=== PATIENT | female | born 1975 | race Caucasian/White ===

== ENCOUNTER → 2017-04-13 | Outpatient (CLI) | payer OTHER ==
--- NOTE | 2017-04-17 09:10 | CODING QUERY NO DIAGNOSIS ---
TREATMENT RENDERED WITHOUT A DIAGNOSIS 77 To promote full compliance with coding requirements relating to patient care, physician participation is requested in all cases of carrier blower uncertainty. Please assist us with providing a diagnosis/symptom for the test(s) below: A diagnosis/symptom was not documented on your Order. A valid diagnosis/symptom is required to bill all insurances. Please remember that we are unable to code a diagnosis of rule out, probable, possible, questionable, or suspected. DOS 04/13/17 Tests that require a diagnosis: * URINE CULTURE DIAGNOSIS: * URINE CLEAN CATCH DIAGNOSIS: Provider Signature: Date: Thank you Azeb Hernandez Health Information Management Once completed, please kindly fax back to [phone] For questions please call [phone]
== END | disposition home or self-care (01) ==
LOC: C.LAB 10:45
PROVIDERS: ATTEND Physician Assistant
DX: R39.9 Unspecified symptoms and signs involving the genitourinary system (principal)

== ENCOUNTER 2023-07-31 16:52 | Inpatient (IN) ==
[2023-07-31] MEDS: SODIUM CHLORIDE 0.9% 1,000 ML IV ONE (17:14)
[2023-07-31] MEDS: KETOROLAC TROMETHAMINE 15 MG/ML VIAL IV ONE (17:14)
[2023-07-31 17:59] LABS: Basophils # (auto) 0.08 K/uL (0.00-0.20); Basophils % (auto) 0.8 %; Eosinophils # (auto) 0.19 K/uL (0.00-0.50); Hematocrit (blood only) 38.5 % (37.0-47.0); Hemoglobin 12.9 g/dl (12.0-16.0); Immature Granulocytes # (auto) 0.03 K/uL (0.01-0.20); Immature Granulocytes % (auto) 0.3 %; Lymphocytes % (auto) 21.9 %; Mean Corpuscular Hemoglobin 29.5 pg (25.0-34.0); Mean Corpuscular Hgb Conc 33.5 g/dL (32.0-36.0); Mean Corpuscular Volume 87.9 fL (80.0-100.0); Mean Platelet Volume 11.6 fL (9.4-12.4); Monocytes % (auto) 8.3 %; Neutrophils % (auto) 66.7 %; Platelet Count 260 K/uL (130-400); RDW Coefficient of Variation 11.9 % (11.5-14.5); RDW Standard Deviation 38.5 fL (36.4-46.3); Red Blood Count 4.38 M/uL (4.20-5.40)
[2023-07-31 18:21] LABS: Albumin Globulin Ratio 1.4 (0.9-2); Albumin Level 4.1 gm/dl (3.4-5.0); BUN Creatinine Ratio 12.9 (10-20); Bilirubin,Total 0.4 mg/dl (0.2-1.0); Calcium 8.9 mg/dl (8.6-10.3); Creatinine Clr Calc Pharmacy 79.1 ml/min; Est GFR (African American) 65.9 ml/min; Est GFR (Non-African American) 56.8 ml/min; Potassium 3.5 mmol/L (3.5-5.1); Total Protein 7.1 gm/dl (6.0-8.3)
[2023-07-31] MEDS: OPTIRAY 320 100ml IV ONE (18:53)
--- NOTE | 2023-07-31 19:35 | Emergency Department Note ---
ED Provider Note History of Present Illness Chief Complaint: Wound Stated Complaint: WOUND Time Seen by Provider: 07/31/23 16:56 47-year-old female who presents the emergency department with complaint of progressively worsening infection of her right upper thigh. The patient reports that her symptoms developed approximately 1 week ago. She was seen in the emergency department 4 days ago with an extensive workup, including labs and CT imaging without abscess formation. She has been taking Keflex and Bactrim DS antibiotics since that time without relief. The patient now reports that the pain is starting to extend onto the mons region, and sensation as if it is radiating along the inner aspect of her hip to her buttock. She also reports progressively worsening redness and firmness of the upper thigh. Patient denies any vaginal pain or discomfort with bowel movements. Patient also denies any change in urinary pattern. The patient reports that it even hurts when she she sits, and has to sit with her right hip turned outward. The patient rates her discomfort a 10 out of 10. Home Medications Medication Instructions Recorded Confirmed Type bupropion HCl 150 mg 24 hr tablet, 150 mg PO DAILY #90 tabs 07/06/23 07/31/23 Rx extended release lorazepam 0.5 mg tablet 0.5 mg PO DAILY PRN anxiety #30 07/06/23 07/31/23 Rx tabs cephalexin 500 mg capsule 500 mg PO BID 10 days #20 caps 07/27/23 07/31/23 Rx sulfamethoxazole 800 1 tab PO BID 10 days #20 tabs 07/27/23 07/31/23 Rx mg-trimethoprim 160 mg tablet (Bactrim DS) cranberry fruit concentrate 250 mg 250 mg PO BID 07/31/23 07/31/23 History chewable tablet (Azo Cranberry) sertraline 50 mg tablet 50 mg PO DAILY 07/31/23 07/31/23 History Allergies Allergy/AdvReac Type Severity Reaction Status Date / Time bee venom protein (honey bee) Allergy Unknown . Verified 07/31/23 20:17 No Known Drug Allergies Allergy Verified 07/06/23 08:21 Past Med/Surg History Problem List (Updated 07/31/23 @ 21:05 by Don Ortiz) Abscess of right groin (Acute) Cellulitis of groin, right (Acute) Bilateral arm pain Bone spur of acromioclavicular joint Contact dermatitis Rash and nonspecific skin eruption Exposure to 2018 novel coronavirus son was positive for coronavirus 01/10/2020 Anxiety and depression Encounter for gynecological examination without abnormal finding Mitral valve prolapse syndrome (Acute) Anxiety with depression Medical History Encounter for other general counseling and advice on contraception Surgical History S/P cholecystectomy History of wisdom tooth extraction Family History Aunt Breast cancer paternal Grandmother (Maternal) Cervical cancer Ovarian cancer Denies family history of Prostate cancer Myocardial infarction Colorectal cancer Social History Smoking Status: Unknown if ever smoked Second Hand Exposure: No; Do You Dip or Chew Tobacco: No; Hx Alcohol Use: Yes Alcohol Intake Frequency: Monthly or Less Hx Substance Use: No Preferred Language: Welsh Communication Ability: Effective Visual Impairment: No Limitations Hearing Ability: Normal Acute Care Nursing Assistant Required: No Beliefs That Will Affect Care: None marital status: Current Living Situation: Family Current Living Situation Comment: Lives at home with kids. current occupational status: employed current occupation: [employer] Feels Safe at Home: Yes Childhood Exposure to Second-Hand Smoke: No Diet: regular Diet Comment: regular caffeine: Yes during the past year weight has: remained stable Dental Care, Regularly: Yes Physical Activity Frequency: Daily Seatbelt Use: always Sunscreen Use: Yes Physical Exam Vital Signs Vital Signs - 24 hr 07/31/23 16:56 07/31/23 20:53 07/31/23 20:54 Pulse Rate 109 H Pulse Rate [Finger] 90 Pulse Rhythm [Finger] Regular Pulse Strength [Finger] Normal Respiratory Rate 20 16 Respiratory Effort / Characteristics Non-Labored Spontaneous Non-Labored Respiratory Depth Normal Normal Blood Pressure 164/108 H Blood Pressure [Right Arm] 109/82 Blood Pressure Mean 126 Blood Pressure Mean [Right Arm] 91 Pulse Oximetry 100 97 97 Oxygen Delivery Method Room Air Room Air Room Air Sepsis Recent Fever Within 48 Hours Yes Sepsis New/Unexplained Change in Mental Status No Sepsis Action Taken by Nursing No Action Required CONSTITUTIONAL: Healthy and well nourished. Patient does not appear in any significant distress, or toxic appearance. GASTROINTESTINAL: Bowel sounds present in all quadrants. Abdomen is soft and nontender to palpation. MUSCULOSKELETAL: Patient has discomfort with logroll of the right hip. INTEGUMENTARY: With a female nurse parts salvager present, examination shows notable erythema and induration along the right anteromedial proximal thigh region, with induration extending through the inguinal crease and onto the right mons. The patient also has induration extending along the medial inguinal crease into the region adjacent to the labia majora. No erythema is noted through the medial inguinal crease. No rash or other significant dermatologic conditions noted. HEMATOLOGIC: No ecchymosis or petechiae. PSYCHIATRIC: Positive affect. NEUROLOGIC: Right lower extremity is sensory intact. Procedures Free Text Procedures A right groin I&D procedure was performed under local anesthesia after receiving verbal consent from the patient. Using lidocaine 1% without epinephrine, good local anesthesia was administered. The patient was also pretreated with IV fentanyl 100 mcg as she was complaining of notable discomfort. The area was painted with iodine and allowed to dry. Using a #11 scalpel, a 1 cm incision was made at the area of pointing. Over an extended period of time, I was able to express approximately 10 to 15 cc of purulent material. Needle drivers were used to try to open as many loculations as possible without getting into vital deeper structures. After light irrigation, 0.25 inch plain packing was placed within the wound, and covered with a bulky gauze dressing. The patient tolerated the procedure well. Course Course Patient history and physical exam were performed. Nurses notes were reviewed. IV access was established, and labs were drawn, reviewed and grossly normal other than a mildly elevated sed rate. The patient was administered IV normal saline and Toradol, refusing any stronger analgesics on initial exam. CT with IV contrast of the pelvis did not show any significant focal areas of fluid collection, with generalized cellulitic changes. CT and laboratory findings were discussed with the patient. I also discussed the case with Dr. De Oliveira, ED attending physician, who also saw the patient in the emergency department this past Thursday. He also spoke with the patient, performed the physical examination, and found an area of point drainage just above the inguinal crease. He recommended I&D procedure and wound cultures. Procedure was performed, as indicated in the previous Procedure section. It is noted that the patient did have notable expression of purulent material. Wound cultures were collected. I also discussed the case with our hospital pharmacist (Isabella) regarding possible antibiotic changes as the patient initially indicated that she could not be admitted because she had other issues at home. Fortunately Dr. De Oliveira was able to convince the patient to stay given worsening infection compared to his examination findings on Thursday. Orders were placed for IV vancomycin, cefepime and clindamycin. [facility]. Please see their dictation for further treatment and final disposition. Administered Medications Vancomycin HCl 2,000 mg/ (Sodium Chloride) 540 mls @ 200 mls/hr IV NOW ONE Stop: 07/31/23 22:40 Last Admin: 07/31/23 21:13 Dose: 200 mls/hr Documented By: TRISH Discontinued Medications Acetaminophen (Acetaminophen 500 Mg Tab) 1,000 mg PO NOW STA Stop: 07/31/23 20:55 Last Admin: 07/31/23 21:12 Dose: 1,000 mg Documented By: TRISH Fentanyl Citrate (Fentanyl Citrate Pf 100 Mcg/2 Ml Vial) 100 mcg IV NOW STA Stop: 07/31/23 20:02 Last Admin: 07/31/23 20:10 Dose: 100 mcg Documented By: TRISH Sodium Chloride (Nss) 1,000 mls @ 999 mls/hr IV .Q1H1M ONE Stop: 07/31/23 18:07 Last Infusion: 07/31/23 18:15 Dose: Infused Documented By: Admin: 07/31/23 17:14 Dose: 999 mls/hr Documented By: MAKSIM Cefepime HCl 1,000 mg/ Syringe 10 mls @ 5 mls/min IV NOW STA; Protocol Stop: 07/31/23 20:00 Last Admin: 07/31/23 20:40 Dose: 5 mls/min Documented By: TRISH Ioversol (Optiray 320 100ml) 93 ml IV ONCE ONE Stop: 07/31/23 18:54 Last Admin: 07/31/23 18:53 Dose: 93 ml Documented By: LOLA Ketorolac Tromethamine (Ketorolac Tromethamine 15 Mg/Ml Vial) 20 mg IV NOW ONE Stop: 07/31/23 17:08 Last Admin: 07/31/23 17:14 Dose: 20 mg Documented By: MAKSIM Lidocaine HCl (Lidocaine 1% Local 20 Ml Vial) 20 ml INFIL NOW ONE Stop: 07/31/23 20:04 Last Admin: 07/31/23 20:49 Dose: 20 ml Documented By: TRISH Ondansetron HCl (Ondansetron Inj 2 Mg/Ml 2 Ml Vial) 4 mg IV NOW STA Stop: 07/31/23 20:03 Last Admin: 07/31/23 20:10 Dose: 4 mg Documented By: TRISH Medical Decision Making Medical Records Attestation: I reviewed the patient's medical records. Home Medications was personally reviewed by me Laboratory Data Attestation: I reviewed the patient's lab results. 07/31/23 17:15 07/31/23 17:15 Lab Results 07/31/23 Range/Units 17:15 WBC 9.60 (4.8-10.8) K/ul RBC 4.38 (4.20-5.40) M/uL Hgb 12.9 (12.0-16.0) g/dl Hct 38.5 (37.0-47.0) % MCV 87.9 (80.0-100.0) fL MCH 29.5 (25.0-34.0) pg MCHC 33.5 (32.0-36.0) g/dL RDW Std Deviation 38.5 (36.4-46.3) fL RDW Coeff of Delfina 11.9 (11.5-14.5) % Plt Count 260 (130-400) K/uL MPV 11.6 (9.4-12.4) fL Immature Gran % (Auto) 0.3 % Neut % (Auto) 66.7 % Lymph % (Auto) 21.9 % [place] % (Auto) 8.3 % Eos % (Auto) 2.0 % Baso % (Auto) 0.8 % Neut # (Auto) 6.40 (1.40-6.50) K/uL Lymph # (Auto) 2.10 (1.20-3.40) K/uL [place] # (Auto) 0.80 H (0.11-0.59) K/uL Eos # (Auto) 0.19 (0.00-0.50) K/uL Baso # (Auto) 0.08 (0.00-0.20) K/uL Immature Gran # (Auto) 0.03 (0.01-0.20) K/uL ESR 21 H (0-20) mm/hr Sodium 138 (136-145) mmol/L Potassium 3.5 (3.5-5.1) mmol/L Chloride 104 (98-107) mmol/L Carbon Dioxide 26 (21-32) mmol/L Anion Gap 8 (3-11) BUN 15 (6-23) mg/dl Creatinine 1.16 (0.6-1.2) mg/dl Est Cr Clr Drug Dosing 79.1 ml/min Est GFR ( Amer) 65.9 ml/min Est GFR (Non-Af Amer) 56.8 ml/min BUN/Creatinine Ratio 12.9 (10-20) Glucose 99 (70-99(Fasting)) mg/dl Calcium 8.9 (8.6-10.3) mg/dl Total Bilirubin 0.4 (0.2-1.0) mg/dl AST 18 (13-39) U/L ALT 19 (7-52) U/L Alkaline Phosphatase 62 (34-104) U/L Total Protein 7.1 (6.0-8.3) gm/dl Albumin 4.1 (3.4-5.0) gm/dl Globulin 3.0 (2.5-4.0) gm/dl Albumin/Globulin Ratio 1.4 (0.9-2) Imaging Data Attestation: I personally reviewed and interpreted this imaging study as follows: My Impression: My interpretation of the CT with IV contrast of the pelvis does not show any significant fluid collections, but notable induration and fat stranding within the subcutaneous tissue. Radiologist report was also reviewed with concurrence. Radiologist's Impression: Pelvis CT 07/31/23 17:07 Exam(s): CT PELVIS With Contrast IV Amt: 93ml optiray 320 EXAM: CT Pelvis With Intravenous Contrast CLINICAL HISTORY: Reason for exam: R upper thigh/inguinal/mons pain/infxn. TECHNIQUE: Axial computed tomography images of the pelvis with intravenous contrast. CTDI is 26.46 mGy and DLP is 1158.87 mGy-cm. Automated exposure control was utilized for the study. A dose lowering technique was utilized adhering to the principles of ALARA. CONTRAST: Patient received 93ml optiray 320 of IV contrast COMPARISON: CT pelvis on 07/27/2023 FINDINGS: Bowel: Mild diverticulosis. No obstruction. No mucosal thickening. Appendix: Normal appendix. Intraperitoneal space: Unremarkable. No free air. No significant fluid collection. Bladder: Unremarkable. No mass. Reproductive: Unremarkable as visualized. Bones/joints: No acute fracture or dislocation. Soft tissues: Fat stranding in the subcutaneous tissues of the right inguinal region, lateral right tibia, and proximal anteromedial right thigh, slightly increased compared to prior exam. Findings may represent cellulitis. No discrete abscess identified. No soft tissue gas. Small fat-containing umbilical hernia. Vasculature: Phleboliths in the pelvis. No lower abdominal aortic aneurysm. Lymph nodes: Nonspecific mildly prominent right inguinal lymph nodes may be reactive. IMPRESSION: Fat stranding in the subcutaneous tissues of the right inguinal region, lateral right tibia, and proximal anteromedial right thigh, slightly increased compared to prior exam. Findings may represent cellulitis. No discrete abscess identified. No soft tissue gas. Electronically signed by: Lisa Beverly M.D. 07/31/23 19:36 PM MDM Narrative See ED Course section for further details of today's visit. The patient presents the emergency department with complaint of progressively worsening cellulitis of her right proximal thigh region, that is now extending onto the mons and intertriginous region through her medial thigh. The patient also reports sensation of tightness and discomfort within the hip region, and has to sit with her hip externally rotated. The patient denies any vaginal or rectal pain. CT imaging today does show a worsening cellulitis when compared to her CT scan from 4 days ago. No obvious fluid collections were appreciated. The patient did have a small area of pointing, with an I&D procedure producing approximately 10 to 15 cc of purulent discharge. Packing was placed within the wound. The case was discussed with Dr. De Oliveira, ED attending physician, who also reexamined the patient and recommended admission. Although the patient was initially against an admission, she did agree given the progressively worsening infection. [facility] and also agrees with admission. Please see their dictation for further treatment and final disposition. Impression Abscess of right groin, Cellulitis of groin, right Discharge Plan Visit Data Chief Complaint: Wound Stated Complaint: WOUND ED Provider: Wilmar De Oliveira ED Midlevel Provider: Don Ortiz Discharge Problem: Abscess of right groin, Cellulitis of groin, right Forms Stand Alone Forms: My [facility] Prescriptions Prescriptions: No Action bupropion HCl 150 mg tablet extended release 24 hr 150 mg PO DAILY Qty: 90 2RF lorazepam 0.5 mg tablet 0.5 mg PO DAILY PRN (Reason: anxiety) Qty: 30 0RF sertraline 50 mg tablet 50 mg PO DAILY Azo Cranberry 250 mg Tablet,Chewable 250 mg PO BID cephalexin 500 mg capsule 500 mg PO BID 10 Days Qty: 20 0RF Rx Instructions: Start Date 07/27/23 x10 day supply, Pt has taken 9 doses. sulfamethoxazole-trimethoprim [Bactrim DS] 800-160 mg tablet 1 tab PO BID 10 Days Qty: 20 0RF Rx Instructions: Start Date 07/27/23 x10 day supply, Pt has taken 9 doses. Referrals Referrals: Cristhian Dunn CRNP [Primary Care Provider] -
[2023-07-31] MEDS ORDERED: VANCOMYCIN CONSULT ACTIVE PRN (19:59)
[2023-07-31] MEDS: CLINDAMYCIN/D5W 900 MG/50 ML BAG IV ONE ×2 (19:59→21:53)
--- NOTE | 2023-07-31 20:02 | Emergency Department Note ---
ED Visit Note Physician Evaluation Note: Patient was seen in conjunction with the midlevel provider. Please see the midlevel provider note for full details of the patient's visit. I have personally evaluated and examined this patient. Patient presented to the ED with increased swelling and pain in the right groin. Patient was seen here in the emergency room by myself on 07/26, she was ultimately discharged home following CT imaging that did not show evidence of abscess, patient was placed on Keflex and Bactrim. Patient states she has not experienced much relief of any of her symptoms despite being on these medications. She continues to have swelling and pain in the area of her right groin. Clinically the patient does have worsening swelling and pain in the groin, there is now tenderness and firmness in the area of concern with mild purulent drainage centrally from what appears to be a small abscess. Lab work was obtained that is largely reassuring, no leukocytosis, patient does not have a fever. CT imaging of the pelvis shows worsening changes consistent with cellulitis without discrete fluid collection. On my examination the patien t does have a small abscess in the groin with some mild drainage with pressure, given this I did advise the PA to perform an incision and drainage. This was performed at the bedside by the PA (Don Ortiz PA-C), please see his procedure note for details. Purulent drainage was expelled from the wound. Patient states she felt some relief of the pressure following this. Given the extent of the findings on CT imaging and clinical worsening of the patient's symptoms, I do feel she would benefit from admission to initiate IV antibiotics (given failure of oral therapy) and to follow-up on blood cultures. Clinically she does not appear to have an acute necrotizing soft tissue infection at this time. Patient is in agreement to this plan. IV vancomycin, IV cefepime, and IV clindamycin were administered, patient was placed for admission in stable condition. I agree with assessment and plan of SERGO Sales DO .
[2023-07-31] MEDS: ONDANSETRON INJ 2 MG/ML 2 ML VIAL IV STA (20:10)
[2023-07-31] MEDS: fentaNYL citrate PF 100 MCG/2 ML VIAL IV STA (20:10)
[2023-07-31] MEDS: CEFEPIME 1,000 MG in SYRINGE 0 ML IV STA (20:40)
[2023-07-31] MEDS: LIDOCAINE 1% LOCAL 20 ML VIAL INFIL ONE (20:49)
[2023-07-31] MEDS ORDERED: NALOXONE HCL 0.4 MG/1 ML VIAL/CARP IV PRN (20:54)
--- NOTE | 2023-07-31 21:11 | History & Physical Report ---
Date of Service July 31, 2023 Assessment & Plan (1) Cellulitis of groin, right: Plan: -Admit to med/sure on pulse oximetry -Currently stable and non-toxic appearing -Patient was initially seen in the [facility] ED on 07/26 for right thigh cellulitis which started on 07/25 -CT of the right pelvis at that time was negative for abscess and she was discharged on Bactrim and Keflex -Cellulitis and pain progressed since -Repeat CT of the RLE today shows progression of the cellulitis, it was read as no fluid collection -The ED was able to drain approximately 10-15 cc of purulent material at bedside tonight -S/P cefepime and clindamycin prior to admission with a dose of Vancomycin ordered as well -We will continue with Cefepime and Vancomycin for now -Follow blood cultures and I&D culture -PRN tylenol and morphine for pain -Regular diet -AM CBC, CMP, mag, PT/INR (2) Abscess of right groin: Plan: -See cellulitis of the right groin Plan The patient was discussed with Dr. Hale at the time of the admission History of Present Illness Chief Complaint: Progressive cellulitis Primary Care Provider: FABIAN Roper Trang is a 47 year old female with a PMH significant for anxiety/depression and mitral valve prolapse who presented to the [facility] ED on 07/31/23 with concerns for progression of her recently diagnosed right groin cellulitis. She was initially diagnosed with cellulitis of the right upper thigh on 07/26 and prescribed Keflex and Bactrim. She has been taking both as prescribed but reports that the cellulitis continues to spread to the anterior thigh and the buttocks. Her pain is so severe that she is unable to put pressure on her right buttocks. She remained stable in the ED. Labs were significant for an ESR of 21. CT of the abd/pelvis W/IV con was read as Fat stranding in the subcutaneous tissues of the right inguinal region, lateral right tibia, and proximal anteromedial right thigh, slightly increased compared to prior exam. Findings may represent cellulitis. No discrete abscess identified. No soft tissue gas. Prior to admission the patient was given 100 mcg IV fentanyl, 4 mg IV Zofran, 20 mg IV toradol, and 1L NSS. She was ordered doses of cefepime, clindamycin, and vancomycin as well. At the time of the exam the patient was lying in bed in no acute distress. She confirms the above history. States that the cellulitis initially started in the right upper thigh. Since 07/26 the cellulitis moved into the right upper mid thigh, right upper anterior thigh, and the right lateral buttocks. She worked a full shift today, she was in severe pain by the end of the shift. States she has had fevers up to 101F despite alternating Tylenol and Ibuprofen at home. Denies recent chest pain, SOB, cough, abd pain, nausea, vomiting, diarrhea, dysuria, hematuria, melena, and recent trauma. She is a full code. The ED staff noted what appeared to be an infected hair follicle near an area of induration in the right upper thigh. They performed a bedside I&D and were able to drain approximately 10 to 15 cc of purulent material which will be sent for culture. Please refer to Dr. Hale's attestation for any changes to the treatment plan Allergies Allergy/AdvReac Type Severity Reaction Status Date / Time bee venom protein (honey bee) Allergy Severe Anaphylaxis Verified 08/01/23 08:01 No Known Drug Allergies Allergy Anaphylaxis Verified 08/01/23 08:01 Home Medications Medication Instructions Recorded Confirmed Type bupropion HCl 150 mg 24 hr tablet, 150 mg PO DAILY #90 tabs 07/06/23 07/31/23 Rx extended release lorazepam 0.5 mg tablet 0.5 mg PO DAILY PRN anxiety #30 07/06/23 07/31/23 Rx tabs cephalexin 500 mg capsule 500 mg PO BID 10 days #20 caps 07/27/23 07/31/23 Rx sulfamethoxazole 800 1 tab PO BID 10 days #20 tabs 07/27/23 07/31/23 Rx mg-trimethoprim 160 mg tablet (Bactrim DS) cranberry fruit concentrate 250 mg 250 mg PO BID 07/31/23 07/31/23 History chewable tablet (Azo Cranberry) sertraline 50 mg tablet 50 mg PO DAILY 07/31/23 07/31/23 History Past Med/Surg History Problem List (Updated 07/31/23 @ 21:05 by Don Ortiz) Abscess of right groin (Acute) Cellulitis of groin, right (Acute) Bilateral arm pain Bone spur of acromioclavicular joint Contact dermatitis Rash and nonspecific skin eruption Exposure to 2019 novel coronavirus son was positive for coronavirus 01/10/2020 Anxiety and depression Encounter for gynecological examination without abnormal finding Mitral valve prolapse syndrome (Acute) Anxiety with depression Medical History Encounter for other general counseling and advice on contraception Surgical History S/P cholecystectomy History of wisdom tooth extraction Family History Aunt Breast cancer paternal Grandmother (Maternal) Cervical cancer Ovarian cancer Denies family history of Prostate cancer Myocardial infarction Colorectal cancer Social History Smoking Status: Never smoker Second Hand Exposure: No; Do You Dip or Chew Tobacco: No; Hx Alcohol Use: Yes Alcohol Intake Frequency: Monthly or Less Hx Substance Use: No Preferred Language: Khmer Communication Ability: Effective Visual Impairment: No Limitations Hearing Ability: Normal Medical Record Specialist Required: No Beliefs That Will Affect Care: None marital status: Current Living Situation: Family Current Living Situation Comment: Lives at home with kids. current occupational status: employed current occupation: [employer] Feels Safe at Home: Yes Safety Concerns: Feels Safe At This Time Childhood Exposure to Second-Hand Smoke: No Diet: regular Diet Comment: regular caffeine: Yes during the past year weight has: remained stable Dental Care, Regularly: Yes Physical Activity Frequency: Daily Seatbelt Use: always Sunscreen Use: Yes Assistive Devices: None Physical Exam Physical Exam: Physical Exam: General: In no acute distress, stated age, well-nourished, non-toxic appearing HEENT: Normocephalic, atraumatic, no scleral icterus, pupils around round, symmetrical, and reactive to light, moist mucus membranes, trachea midline, no thyromegaly Chest/Pulm: No respiratory distress, symmetrical chest expansion, clear breath sounds throughout Cardiac: tachycardic rate, regular rhythm, no murmurs noted Abdomen: Negative for ascites and bruising, normoactive bowel sounds, soft, non-tender to palpation throughout Musculoskeletal: Symmetrical and without signs of acute trauma, upper and lower extremities with full ROM, no atrophy, spasticity, or flaccidity Extremities: Radial, dorsalis pedis, and posterior tibial pulses are intact and symmetrical, no edema noted in the BL LE's Skin: Patient is S/P right upper groin I&D currently bandaged and without active bleeding, erythema and swelling of the right upper thigh/groin with some erythema on the right lateral thigh, area is warm and tender to palpation Neuro: Alert and oriented to person, place, month, year, and president, no focal defects, no tremors noted Psych: No acute distress, calm, pleasant, and cooperative during the exam Results & Data Results & Data Vital Signs (Past 12 Hours) Vital Signs Pulse Resp BP Pulse Ox O2 Del Method 07/31/23 16:56 109 H 20 164/108 H 100 Room Air Laboratory Results Abnormal lab results 07/31/23 Range/Units 17:15 [place] # (Auto) 0.80 H (0.11-0.59) K/uL ESR 21 H (0-20) mm/hr Diagnostic Findings Pelvis CT 07/31/23 17:07 Exam(s): CT PELVIS With Contrast IV Amt: 93ml optiray 320 EXAM: CT Pelvis With Intravenous Contrast CLINICAL HISTORY: Reason for exam: R upper thigh/inguinal/mons pain/infxn. TECHNIQUE: Axial computed tomography images of the pelvis with intravenous contrast. CTDI is 26.46 mGy and DLP is 1158.87 mGy-cm. Automated exposure control was utilized for the study. A dose lowering technique was utilized adhering to the principles of ALARA. CONTRAST: Patient received 93ml optiray 320 of IV contrast COMPARISON: CT pelvis on 07/27/2023 FINDINGS: Bowel: Mild diverticulosis. No obstruction. No mucosal thickening. Appendix: Normal appendix. Intraperitoneal space: Unremarkable. No free air. No significant fluid collection. Bladder: Unremarkable. No mass. Reproductive: Unremarkable as visualized. Bones/joints: No acute fracture or dislocation. Soft tissues: Fat stranding in the subcutaneous tissues of the right inguinal region, lateral right tibia, and proximal anteromedial right thigh, slightly increased compared to prior exam. Findings may represent cellulitis. No discrete abscess identified. No soft tissue gas. Small fat-containing umbilical hernia. Vasculature: Phleboliths in the pelvis. No lower abdominal aortic aneurysm. Lymph nodes: Nonspecific mildly prominent right inguinal lymph nodes may be reactive. IMPRESSION: Fat stranding in the subcutaneous tissues of the right inguinal region, lateral right tibia, and proximal anteromedial right thigh, slightly increased compared to prior exam. Findings may represent cellulitis. No discrete abscess identified. No soft tissue gas. Electronically signed by: Lisa Beverly M.D. 07/31/23 19:36 PM Code Status & VTE Plan Code Status Full code VTE Prophylaxis Plan VTE Prophylaxis will be ordered: Yes Supervising Physician Co-Signing Physician Notes Attending addendum: I have physically seen this patient, have supervised the MYRA's activities, and agree with the H&P unless as otherwise noted. Assessment and Plan: Right groin cellulitis- CT abdomen pelvis stable Vancomycin IV, clindamycin IV and cefepime IV ordered from the ED Continue vancomycin IV and cefepime IV Follow wound culture and sensitivity, blood culture and sensitivity PG Care Time/CCT Total # of Minutes Spent Total Time Spent with Patient: Total time spent is greater than 50% in coordination of care (as documented) at patient's floor/unit and/or counseling patient: C[place] [address] INT INP/OBS CARE 2/55MIN Patient Type Established Medical Decision Making Moderate Complexity Diagnoses Cellulitis of groin, right L03.314 Abscess of right groin L02.214
[2023-07-31] MEDS: ACETAMINOPHEN 500 MG TAB PO STA (21:12)
[2023-07-31] MEDS: VANCOMYCIN HCL 2,000 MG in SODIUM CHLORIDE 0.9% 500 ML IV ONE (21:13)
[2023-07-31] MEDS: MoRPHine SULFATE 2 MG/ML CARP IV STA (21:53)
[2023-07-31] MEDS ORDERED: MoRPHine SULFATE 2 MG/ML CARP IV PRN (23:00)
[2023-07-31] MEDS: LORazepam 0.5 MG TAB PO PRN (23:28)
[2023-07-31] MEDS: ENOXAPARIN INJ 40 MG/0.4 ML SYR SQ SCH (23:28)
[2023-08-01] MEDS: IBUPROFEN 600 MG TAB PO STA (01:09)
[2023-08-01] MEDS: CEFEPIME 2,000 MG in SYRINGE 0 ML IV SCH (01:10)
[2023-08-01] MEDS: ACETAMINOPHEN 325 MG TAB PO SCH (01:11)
[2023-08-01 07:15] LABS: Basophils # (auto) 0.08 K/uL (0.00-0.20); Basophils % (auto) 1.2 %; Eosinophils # (auto) 0.28 K/uL (0.00-0.50); Eosinophils % (auto) 4.1 %; Hematocrit (blood only) 36.5 % (37.0-47.0); Hemoglobin 12.1 g/dl (12.0-16.0); Immature Granulocytes # (auto) 0.01 K/uL (0.01-0.20); Immature Granulocytes % (auto) 0.1 %; Lymphocytes # (auto) 1.65 K/uL (1.20-3.40); Lymphocytes % (auto) 24.3 %; Mean Corpuscular Hemoglobin 29.3 pg (25.0-34.0); Mean Corpuscular Hgb Conc 33.2 g/dL (32.0-36.0); Mean Corpuscular Volume 88.4 fL (80.0-100.0); Mean Platelet Volume 11.7 fL (9.4-12.4); Monocytes # (auto) 0.72 K/uL (0.11-0.59); Monocytes % (auto) 10.6 %; Neutrophils # (auto) 4.06 K/uL (1.40-6.50); Neutrophils % (auto) 59.7 %; Platelet Count 208 K/uL (130-400); RDW Coefficient of Variation 11.9 % (11.5-14.5); RDW Standard Deviation 38.6 fL (36.4-46.3); Red Blood Count 4.13 M/uL (4.20-5.40)
[2023-08-01 07:28] LABS: Albumin Globulin Ratio 1.4 (0.9-2); Albumin Level 3.4 gm/dl (3.4-5.0); BUN Creatinine Ratio 14.8 (10-20); Bilirubin,Total 0.4 mg/dl (0.2-1.0); Calcium 7.9 mg/dl (8.6-10.3); Creatinine Clr Calc Pharmacy 113.2 ml/min; Est GFR (African American) 101.7 ml/min; Est GFR (Non-African American) 87.7 ml/min; Globulin 2.5 gm/dl (2.5-4.0); Potassium 3.8 mmol/L (3.5-5.1); Total Protein 5.9 gm/dl (6.0-8.3)
[2023-08-01] MEDS ORDERED: HYDROCODONE/ACETAMINOPHEN 7.5/325MG TAB PO PRN (07:46)
[2023-08-01] MEDS ORDERED: MoRPHine SULFATE 2 MG/ML CARP IV PRN (07:48)
[2023-08-01] MEDS: SERTRALINE HCL 50 MG TABLET PO SCH (08:07)
[2023-08-01] MEDS: buPROPion XL 150 MG TABCR PO SCH (08:08)
[2023-08-01] MEDS: VANCOMYCIN HCL 1,000 MG in SODIUM CHLORIDE 0.9% 250 ML IV SCH (08:08)
[2023-08-01] MEDS: KETOROLAC 30 MG/ML VIAL IV PRN (08:08)
--- NOTE | 2023-08-01 08:51 | Pharmacy Report ---
Pharmacy PK ABX Note - Date of Service August 01, 2023 - Assessment and Plan Assessment 47 year old F receiving IV Vancomycin + Cefepime for treatment of right groin cellulitis. -Patient was initially seen in the [facility] ED on 07/26 for right thigh cellulitis which started on 07/25 -CT of the right pelvis at that time was negative for abscess and she was discharged on Bactrim and Keflex -Cellulitis and pain progressed since -Repeat CT of the RLE 07/31 shows progression of the cellulitis, it was read as no fluid collection -The ED was able to drain approximately 10-15 cc of purulent material at bedside tonight Blood and groin cultures pending, afebrile, WBC 6.8. Day # 2 of antimicrobial therapy as inpatient. Plan Vancomycin * Loading dose: 2000 mg IV x 1 * Maintenance dose: 1000 mg IV every 12 hours * Regimen is predicted to achieve target AUC/BEAR of 400-600 mg/L.hr * Trough level ordered for: 08/02/23 Cefepime 2000mg IV Q8H Pharmacy will continue to follow and will adjust dose/frequency as necessary. Thank you. Pharmacy has transitioned to AUC monitoring for vancomycin. AUC/BEAR is the preferred PK/PD target and is associated with decreased risk of nephrotoxicity compared to traditional trough targets.
--- NOTE | 2023-08-01 14:09 | Hospitalist Progress Note ---
Date of Service August 01, 2023 Assessment & Plan (1) Cellulitis of groin, right: Plan: 47-year-old woman with right groin cellulitis and abscess due to Staph aureus, failed to respond to oral Keflex and Bactrim -Initially seen in the [facility] ED on 07/26 for right thigh cellulitis which started on 07/25 -CT of the right pelvis at that time was negative for abscess and she was discharged on Bactrim and Keflex -Cellulitis and pain progressed significantly -CT of the RLE 07/30 shows progression of the cellulitis, it was read as no fluid collection -The ED was able to drain approximately 10-15 cc of purulent material from abscess right groin - culture of this growing Staph aureus, since he pending plan: Narrow antibiotics to vancomycin and cefazolin pending sensitivities - for pain control added as needed Toradol, tramadol, [place]. Continue acetaminophen - will benefit from continued IV antibiotics for severe SSTI, home in 1-2 days reviewed CBC 07/31 unremarkable no leukocytosis, BMP with preserved normal renal function and normal electrolytes follow-up blood cultures which are pending (2) Abscess of right groin: Plan: continue wound care, see above Plan low risk for DVT, is ambulatory, continue SCDs Admission and Anticipated Discharge Date Admission Date: July 31, 2023 Subjective R groin remains painful 07/23, dose of toradol today did help Indurated area improved - was size of her hand, now maybe half that Erythema of skin of thigh, buttock resolved Physical Exam 2 Physical Exam: PHYSICAL EXAMINATION Last 24h vital signs reviewed, see documentation in flowsheet General: healthy appearing, no distress HEENT: Normocephalic, atraumatic, pupils round and equal, sclerae anicteric, no conjunctival injection, moist mucus membranes Lungs: Normal respiratory effort. Heart: Abdomen: nondistended. Extremities: Warm, dry, well-perfused. No extremity edema. right groin with small incision and wick at site of IND, indurated area approximately 1520-20 x 5 centimeters, darkening erythema overlying that area, adenopathy present, cellulitis of thigh and buttock resolved Neuro: Alert and oriented x 4, face symmetric, moves 4 extremities well Psych: Normal affect and behavior Results & Data Results & Data Vital Signs (Past 12 Hours) Vital Signs Temp Pulse Resp BP Pulse Ox O2 Del Method 08/01/23 07:41 Room Air 08/01/23 07:21 36.7 C 78 18 106/70 98 Room Air Laboratory Results 08/01/23 05:53 08/01/23 05:53 PG Care Time/CCT Total # of Minutes Spent Total Time Spent with Patient: Total time spent is greater than 50% in coordination of care (as documented) at patient's floor/unit and/or counseling patient: Coding Level of Care Code 01421 SUB INP/OBS CARE 2/35MIN Diagnoses Cellulitis of groin, right L03.314 Abscess of right groin L02.214
[2023-08-01] MEDS: ceFAZolin 2000MG 2,000 MG/15 ML SYR IV SCH (15:38)
[2023-08-01] MEDS: ONDANSETRON INJ 2 MG/ML 2 ML VIAL IV PRN (16:17)
[2023-08-01] MEDS: traMADol HCL 50 MG TABLET PO PRN (18:17)
[2023-08-01] MEDS: VANCOMYCIN HCL 1,250 MG in SODIUM CHLORIDE 0.9% 250 ML IV SCH (18:18)
[2023-08-02 06:05] LABS: Creatinine Clr Calc Pharmacy 122.3 ml/min; Est GFR (African American) 111.6 ml/min; Est GFR (Non-African American) 96.3 ml/min
[2023-08-02] MEDS: VANCOMYCIN LEVEL ONE (06:14)
--- NOTE | 2023-08-02 08:43 | Pharmacy Report ---
Pharmacy PK ABX Note - Date of Service August 02, 2023 - Assessment and Plan Microbiology 07/31/23 20:40 Groin Gram Stain - Final 07/31/23 20:40 Groin Aerobic and Anaerobic Culture - Preliminary Staph aureus MRSA 07/31/23 20:25 Blood Aerobic Blood Culture - Preliminary 07/31/23 20:25 Blood Anaerobic Blood Culture - Preliminary No growth in Aerobic bottle after 24 hours. No growth in Anaerobic bottle after 24 hours. 07/31/23 20:15 Blood Aerobic Blood Culture - Preliminary 07/31/23 20:15 Blood Anaerobic Blood Culture - Preliminary No growth in Aerobic bottle after 24 hours. No growth in Anaerobic bottle after 24 hours. Assessment 08/01: Cefepime changed to cefazolin last night, groin growing MRSA, discontinue cefazolin and continue Vancomycin. *Note: patient got worse on 5 days of Bactrim at home - but MRSA culture is susceptible to Bactrim. ED did drain abscess 07/31. No growth in blood cultures x 24h. Day # 3 of antimicrobial therapy as inpatient. 07/31: 47 year old F receiving IV Vancomycin + Cefepime for treatment of right groin cellulitis. -Patient was initially seen in the [facility] ED on 07/26 for right thigh cellulitis which started on 07/25 -CT of the right pelvis at that time was negative for abscess and she was discharged on Bactrim and Keflex -Cellulitis and pain progressed since -Repeat CT of the RLE 07/31 shows progression of the cellulitis, it was read as no fluid collection -The ED was able to drain approximately 10-15 cc of purulent material at bedside tonight Blood and groin cultures pending, afebrile, WBC 6.8. Day # 2 of antimicrobial therapy as inpatient. Plan Vancomycin * Current regimen: 1250 mg IV every 12 hours * Trough level obtained 08/02/23 resulted as 8.1 mcg/mL. This is NOT predicted to achieve target AUC/BEAR of 400-600 mg/L.hr * Change to 1750 mg IV every 12 hours * Will repeat level in the next 48-72 hours if therapy is continued and/or change in patient clinical status * Anticipate discharge this evening Pharmacy will continue to follow and will adjust dose/frequency as necessary. Thank you. Pharmacy has transitioned to AUC monitoring for vancomycin. AUC/BEAR is the preferred PK/PD target and is associated with decreased risk of nephrotoxicity compared to traditional trough targets.
[2023-08-02] MEDS: VANCOMYCIN HCL 1,750 MG in SODIUM CHLORIDE 0.9% 500 ML IV SCH (14:45)
--- NOTE | 2023-08-02 14:56 | Hospitalist Progress Note ---
Date of Service August 02, 2023 Assessment & Plan (1) Cellulitis of groin, right: Plan: 47-year-old woman with right groin cellulitis and abscess due to MRSA, failed to respond to oral Keflex and Bactrim -Initially seen in the [facility] ED on 07/26 for right thigh cellulitis which started on 07/25 -CT of the right pelvis at that time was negative for abscess and she was discharged on Bactrim and Keflex -Cellulitis and pain progressed significantly - erythema of R thigh and buttock -CT of the RLE 07/30 showed progression of the cellulitis, it was read as no fluid collection -The ED was able to drain approximately 10-15 cc of purulent material from abscess right groin -culture is growing MRSA S to bactrim, doxy, clinda -blood cx NGTD plan: stop cefazolin and continue vancomycin - discussed with clinical pharmacist - indurated are has increased rather than decreased since yesterday - continue IV antibiotics, repeat imaging with ultrasound for persistent abscess if not continuing to improve - Cont Toradol, tramadol, [place]. Continue acetaminophen - will benefit from continued IV antibiotics for severe SSTI Cr remains normal today and vanco level low, dose increased follow-up blood cultures which are pending (2) Abscess of right groin: Plan: continue wound care, see above has tiny wick, leave in place since still draining and probably impossible to replace the wick Plan low risk for DVT, is ambulatory, continue SCDs Admission and Anticipated Discharge Date Admission Date: July 31, 2023 Subjective Had an episode of severe pain radiating from groin down anterior thigh yesterday afternoon, has not recurred Continues with purulent drainage from I&D site, indurated area has spread above the inguinal crease Pain controlled on toradol and tramadol Physical Exam Physical Exam: PHYSICAL EXAMINATION Last 24h vital signs reviewed, see documentation in flowsheet General: healthy appearing, no distress HEENT: Normocephalic, atraumatic, pupils round and equal, sclerae anicteric, no conjunctival injection, moist mucus membranes Lungs: Normal respiratory effort. Heart: Abdomen: nondistended. Extremities: Warm, dry, well-perfused. No extremity edema. right groin with small incision and wick at site of I&D with mild/mod purulent drainage on gauze, indurated area now present above inguinal crease, R groin adenopathy present, cellulitis of thigh and buttock resolved Neuro: Alert and oriented x 4, face symmetric, moves 4 extremities well Psych: Normal affect and behavior Results & Data Results & Data Vital Signs (Past 12 Hours) Vital Signs Temp Pulse Resp BP Pulse Ox O2 Del Method 08/02/23 07:04 36.7 C 71 16 116/76 98 Room Air Laboratory Results Cr 0.75, vancomycin 8.1 PG Care Time/CCT Total # of Minutes Spent Total Time Spent with Patient: Total time spent is greater than 50% in coordination of care (as documented) at patient's floor/unit and/or counseling patient: Coding Level of Care Code 66902 SUB INP/OBS CARE 235MIN Diagnoses Cellulitis of groin, right L03.314 Abscess of right groin L02.214
[2023-08-03 06:45] LABS: Creatinine Clr Calc Pharmacy 117.1 ml/min; Est GFR (African American) 106.4 ml/min; Est GFR (Non-African American) 91.8 ml/min
--- NOTE | 2023-08-03 10:27 | Ultrasound Report ---
US soft tissue groin CLINICAL HISTORY: US right groin, evaluate for abscess TECHNIQUE: Real-time grayscale sonographic images of the right groin were obtained. Comparison: Comparison is made to CT pelvis 07/31/2023 FINDINGS/IMPRESSION: In the tract formed by packing material, there is a tiny complex fluid collectio n measuring 3.7 x 0.4 x 1.8 cm compatible with a tiny abscess. Prominent regional lymph nodes are lik [place] reactive. ACT 112: Negative or not required by law. Electronically signed by: Gen Jerez M.D. 08/03/2023 10:26 AM
--- NOTE | 2023-08-03 19:05 | Discharge Summary ---
Date of Service August 03, 2023 Admission HPI Per Admitting Provider Trang is a 47 year old female with a PMH significant for anxiety/depression and mitral valve prolapse who presented to the [facility] ED on 07/31/23 with concerns for progression of her recently diagnosed right groin cellulitis. She was initially diagnosed with cellulitis of the right upper thigh on 07/26 and prescribed Keflex and Bactrim. She has been taking both as prescribed but reports that the cellulitis continues to spread to the anterior thigh and the buttocks. Her pain is so severe that she is unable to put pressure on her right buttocks. She remained stable in the ED. Labs were significant for an ESR of 21. CT of the abd/pelvis W/IV con was read as Fat stranding in the subcutaneous tissues of the right inguinal region, lateral right tibia, and proximal anteromedial right thigh, slightly increased compared to prior exam. Findings may represent cellulitis. No discrete abscess identified. No soft tissue gas. Prior to admission the patient was given 100 mcg IV fentanyl, 4 mg IV Zofran, 20 mg IV toradol, and 1L NSS. She was ordered doses of cefepime, clindamycin, and vancomycin as well. At the time of the exam the patient was lying in bed in no acute distress. She confirms the above history. States that the cellulitis initially started in the right upper thigh. Since 07/26 the cellulitis moved into the right upper mid thigh, right upper anterior thigh, and the right lateral buttocks. She worked a full shift today, she was in severe pain by the end of the shift. States she has had fevers up to 101F despite alternating Tylenol and Ibuprofen at home. Denies recent chest pain, SOB, cough, abd pain, nausea, vomiting, diarrhea, dysuria, hematuria, melena, and recent trauma. She is a full code. Principal Diagnosis Right groin MRSA abscess and cellulitis Discharge Exam PHYSICAL EXAMINATION Last 24h vital signs reviewed, see documentation in flowsheet General: healthy appearing, no distress HEENT: Normocephalic, atraumatic, pupils round and equal, sclerae anicteric, no conjunctival injection, moist mucus membranes Lungs: Normal respiratory effort. Heart: Abdomen: nondistended. Extremities: Warm, dry, well-perfused. No extremity edema. right groin with small incision and wick at site of I&D, all erythema resolved, induration significantly improved and now nontender Neuro: Alert and oriented x 4, face symmetric, moves 4 extremities well Psych: Normal affect and behavior Discharge Data Allergies Allergy/AdvReac Type Severity Reaction Status Date / Time bee venom protein (honey bee) Allergy Severe Anaphylaxis Verified 08/01/23 08:01 No Known Drug Allergies Allergy Anaphylaxis Verified 08/01/23 08:01 Ordered Studies 07/31/23 17:07 CT pelvis w/IV con only Stat 08/03/23 09:04 US soft tissue groin Urgent Pelvis CT 07/31/23 17:07 Exam(s): CT PELVIS With Contrast IV Amt: 93ml optiray 320 EXAM: CT Pelvis With Intravenous Contrast CLINICAL HISTORY: Reason for exam: R upper thigh/inguinal/mons pain/infxn. TECHNIQUE: Axial computed tomography images of the pelvis with intravenous contrast. CTDI is 26.46 mGy and DLP is 1158.87 mGy-cm. Automated exposure control was utilized for the study. A dose lowering technique was utilized adhering to the principles of ALARA. CONTRAST: Patient received 93ml optiray 320 of IV contrast COMPARISON: CT pelvis on 07/27/2023 FINDINGS: Bowel: Mild diverticulosis. No obstruction. No mucosal thickening. Appendix: Normal appendix. Intraperitoneal space: Unremarkable. No free air. No significant fluid collection. Bladder: Unremarkable. No mass. Reproductive: Unremarkable as visualized. Bones/joints: No acute fracture or dislocation. Soft tissues: Fat stranding in the subcutaneous tissues of the right inguinal region, lateral right tibia, and proximal anteromedial right thigh, slightly increased compared to prior exam. Findings may represent cellulitis. No discrete abscess identified. No soft tissue gas. Small fat-containing umbilical hernia. Vasculature: Phleboliths in the pelvis. No lower abdominal aortic aneurysm. Lymph nodes: Nonspecific mildly prominent right inguinal lymph nodes may be reactive. IMPRESSION: Fat stranding in the subcutaneous tissues of the right inguinal region, lateral right tibia, and proximal anteromedial right thigh, slightly increased compared to prior exam. Findings may represent cellulitis. No discrete abscess identified. No soft tissue gas. Electronically signed by: Lisa Beverly M.D. 07/31/23 19:36 PM Soft Tissue Ultrasound 08/03/23 09:04 US soft tissue groin CLINICAL HISTORY: US right groin, evaluate for abscess TECHNIQUE: Real-time grayscale sonographic images of the right groin were obtained. Comparison: Comparison is made to CT pelvis 07/31/2023 FINDINGS/IMPRESSION: In the tract formed by packing material, there is a tiny complex fluid collection measuring 3.7 x 0.4 x 1.8 cm compatible with a tiny abscess. Prominent regional lymph nodes are likely reactive. ACT 112: Negative or not required by law. Electronically signed by: Gen Jerez M.D. 08/03/2023 10:26 AM Hospital Course (1) Cellulitis of groin, right: 47-year-old woman with right groin cellulitis and abscess due to MRSA, failed to respond to oral Keflex and Bactrim -Initially seen in the [facility] ED on 07/26 for right thigh cellulitis which started on 07/25 -CT of the right pelvis at that time was negative for abscess and she was discharged on Bactrim and Keflex -Cellulitis and pain progressed significantly - erythema of R thigh and buttock -CT of the RLE 07/30 showed progression of the cellulitis, it was read as no fluid collection -The ED was able to drain approximately 10-15 cc of purulent material from abscess right groin -started initially on cefepime and vancomycin -abscess culture grew MRSA S to bactrim, doxy, clinda - ABX narrowed to vancomycin, cellulitis resolved but indurated area increased on 08/01. Overnight had spontaneous drainage of large amount of pus from I&D site with significant resolution in the indurated area and improvement in pain -Ultrasound today with tiny remaining abscess along the incision tract, too small to I&D -blood cx NGTD >48h -discharged on oral bactrim for 7-10 more days, leave wick in place 1-2 more days until drainage resolved -APAP, naproxen and tramadol for pain -primary care follow up (2) Abscess of right groin: continue wound care, see above has tiny wick, leave in place since still draining and probably impossible to replace the wick Plan Total Time Total Time Spent Total Time Spent (In Minutes): <30 minutes Discharge Plan Discharge Items Patient Disposition: Home - Self-Care Reason For Visit: FAILED OUTPATIENT CELLULITIS TREATMENT Discharge Diagnosis: cellulitis and abscess of right groin due to MRSA Activity: Resume your previous activity Non-emergency contact: Primary Care Provider Call non-emergency contact if: you have any medication questions, your symptoms worsen, your wound has increased redness, your wound has increased drainage and your wound pain has increased Follow-up/Referrals: Cristhian Dunn CRNP [Primary Care Provider] - 08/19/23 8:20 am Diet: Regular Addtl Attending Provider Instructions: MRSA cellulitis and abscess R groin -improved on vancomycin -the MRSA is sensitive to bactrim, doxycycline and clindamycin as well -continue taking bactrim for about 7 more days, extend to 10 days if redness and swelling not resolved by then -there is a tiny amount of pus left, along the incision tract - leave the wick in place for 1-2 days until drainage stops, then pull it out -keep the wound covered with dry gauze -good handwashing to prevent spread of MRSA Seek medical attention if you have increased pain, redness, swelling, or fever - these are signs of abscess that may require further drainage Your blood cultures have been negative for >48h. They finalize after 5 days. You would need to come back in for further IV antibiotics if you have MRSA bloodstream infection, fortunately, this is unlikely You can take acetaminophen, naproxen, and tramadol as needed for pain - likely will be much better by three days from now It was a pleasure taking care of you in the hospital Pending Studies at Discharge: Yes Stand-Alone Forms: My [facility], Work/School Release, Smoking Cessation Medications and DC Order Prescriptions: New tramadol 50 mg Tablet 50 mg PO Q4H PRN (Reason: pain) Qty: 12 0RF sulfamethoxazole-trimethoprim [Bactrim DS] 800-160 mg tablet 1 tab PO BID 5 Days Qty: 10 0RF Continued sertraline 50 mg tablet 50 mg PO DAILY Qty: 90 1RF bupropion HCl 150 mg tablet extended release 24 hr 150 mg PO DAILY Qty: 90 2RF lorazepam 0.5 mg tablet 0.5 mg PO DAILY PRN (Reason: anxiety) Qty: 30 0RF Azo Cranberry 250 mg Tablet,Chewable 250 mg PO BID sulfamethoxazole-trimethoprim [Bactrim DS] 800-160 mg tablet 1 tab PO BID 10 Days Qty: 20 0RF Rx Instructions: Start Date 07/27/23 x10 day supply, Pt has taken 9 doses. Discontinued cephalexin 500 mg capsule 500 mg PO BID 10 Days Qty: 20 0RF Rx Instructions: Start Date 07/27/23 x10 day supply, Pt has taken 9 doses. Discharge Orders: Discharge Order (Routine); Ordered 08/03/23 Ordered By: Joy Campbell Admission Data Admit Date/Time: 07/31/23 20:52 Attending Provider: Joy Campbell Admit Provider: Tulio Hale Primary Care Provider: Cristhian Dunn Other Interventions: Discharge Summary Assessment (RN) Last Done: 08/03/23 13:18 Coding Level of Care Code 98439 IN/OBS DISCH 30 MIN/LESS Diagnoses Cellulitis of groin, right L03.314 Abscess of right groin L02.214
== END 2023-08-03 13:50 | disposition home or self-care (01) | DRG 603 ==
LOC: ED 16:52 → SUATTDRO 20:52 → 3E 20:52